=== PATIENT | female | born 1995 | race Caucasian/White ===

== ENCOUNTER 2017-08-10 10:53 | Emergency (ER) | payer OTHER ==
[~2017-08-10 10:53] MED LIST: MELO-207 PO; NYST100016 PO
--- NOTE | 2017-08-10 11:08 | ER Report ---
History and Physical Time Seen By MD: 10:58 Hx. of Stated Complaint: SLammed finger in door. Left 3rd digit HPI/ROS CHIEF COMPLAINT: Left 3rd finger injury HISTORY OF PRESENT ILLNESS: Patient is a 22-year-old female who presents the ED with complaint of a left 3rd finger injury that occurred about 10 minutes ago. 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 She is having pain and noticed a laceration of her left 3rd finger. She states it has been bleeding. Patient is able to move the finger with some pain. REVIEW OF SYSTEMS: Constitutional: No fever, no chills. Cardiovascular: No chest pain, no palpitations. Respiratory: No cough, no shortness of breath. Musculoskeletal: See history of present illness. Skin: See history of present illness. Neurological: No headache. Allergies: Coded Allergies: amoxicillin (Verified Allergy, Intermediate, HIVES, 08/10/17) Home Meds Discontinued Scripts Meloxicam (MELOXICAM) 15 Mg Tablet, 15 MG PO QDAY Y for pain, #30 TAB 1 Refill Prov:DINORAH ARAUZ MD 05/11/17 Reviewed Nurses Notes: Yes Old Medical Records Reviewed: Yes Smoking Status: Never Smoker Hx Substance Use Disorder: No Hx Alcohol Use: Yes (occ) Constitutional Vital Sign - Last 24 Hours 08/10/17 08/10/17 08/10/17 08/10/17 10:57 11:00 11:15 11:30 Temp 98.0 Pulse 66 78 67 Resp 18 B/P (MAP) 130/88 124/84 (97) 121/91 (101) Pulse Ox 97 98 98 O2 Delivery Room Air Physical Exam General Appearance: The patient is alert, has no immediate need for airway protection and no current signs of toxicity. Patient appears to be no acute distress. Respiratory: Chest is non tender, lungs are clear to auscultation. Cardiac: regular rate and rhythm Musculoskeletal: Neck: Neck is supple and non tender. There is some pain with palpation of the left 3rd middle phalanx. There is slight swelling. There is a laceration along the left 3rd middle phalanx that is slightly jagged and measures about 2 cm. Radial pulses 2+ with normal capillary refill. Normal sensation. Patient has full range of motion of the left 3rd finger with some pain. Skin: See above exam. [ ] DIFFERENTIAL DIAGNOSIS: After history and physical exam differential diagnosis was considered for left 3rd finger injury including acute fracture, laceration, contusion, sprain. Medical Decision Making EKG/Imaging Imaging Left 3rd Finger Xrays: IMPRESSION: 1. No acute osteoarticular abnormality of the left third finger is seen Report Dictated By: Caitie Bob MD at 08/10/2017 11:34 AM Report E-Signed By: Caitie Bob MD at 08/10/2017 11:36 AM ED Course/Re-evaluation ED Course Will obtain left 3rd finger x-rays. 08/10/2017 12:12:22 pm - discussed x-ray results with patient. There appears to be no fracture per radiology. Plan to suture the wound and place her on Keflex. Her tetanus vaccination is up-to-date. Procedure: Laceration repair. Verbal consent was obtained from the patient. The 2 cm jagged laceration on the left 3rd finger was anesthetized in the usual fashion with a left 3rd finger digital block using 1% lidocaine. The wound was scrubbed, draped and explored to its base with a gloved finger. There were no deep structures involved. No tendon injury was identified. The wound was repaired with 3 4-0 Prolene sutures in simple interrupted fashion. The wound repair was simple. The procedure was performed by myself. Decision to Disposition Date: Aug 10, 2017 Decision to Disposition Time: 12:13 Depart Departure Latest Vital Signs Vital Signs Date Time Temp Pulse Resp B/P (MAP) Pulse Ox O2 Delivery O2 Flow Rate FiO2 08/10/17 11:30 121/91 (101) 08/10/17 11:15 67 98 08/10/17 10:57 98.0 18 Room Air Impression: Primary Impression: Laceration of left middle finger Condition: Improved Disposition: HOME OR SELF-CARE Referrals: DINORAH ARAUZ MD (PCP) [facility] New Scripts Cephalexin 500 Mg Tab (KEFLEX 500 MG TAB) 500 Mg Tablet 500 MG PO Q6H, #28 TAB Prov: LAURA MARTINEZ PA-C 08/10/17 Patient Instructions: Finger Laceration (ED) Additional Instructions: Eyes, ice, elevate. Monitor for any signs and symptoms of infection including redness, swelling, discharge, fever. Follow-up with primary care provider or orthopedics in 7-10 days for suture removal. If having any worsening or concerning symptoms may return to the emergency department. Problem Qualifiers Primary Impression: Laceration of left middle finger Encounter type: initial encounter Damage to nail status: without damage Foreign body presence: without foreign body Qualified Codes: S61.213A - Laceration without foreign body of left middle finger without damage to nail, initial encounter LAURA MARTINEZ PA-C Aug 10, 2017 11:08
[2017-08-10 11:30] VITALS: BP 121/91
--- NOTE | 2017-08-10 11:40 | RADIOLOGY IMAGING REPORT ---
[place] [facility] [place] NAME[place] Irasema Coles : 1995 MR: [id number] V: [id number] EXAM DATE: ORDERING PHYSICIAN: LAURA MARTINEZ TECHNOLOGIST: Location: [facility] - [place] Patient: Irasema Coles : 1995 Visit/Account:[id number] Date of Sevice: 08/10/2017 Exam type: FINGER LEFT 3RD DIGIT History: Pain in left third finger, slammed in car door Comparison: None. Findings: There is no evidence of acute fracture, dislocation or radiopaque soft tissue foreign body involving the left third finger. IMPRESSION: 1. No acute osteoarticular abnormality of the left third finger is seen Report Dictated By: Caitie Bob MD at 08/10/2017 11:34 AM Report E-Signed By: Caitie Bob MD at 08/10/2017 11:36 AM WSN:[id number]
[2017-08-10] MEDS ORDERED: BACITRACIN OINT 0.9 GM PKT TP ONE (12:10)
[2017-08-10] MEDS ORDERED: CEPH500T7 PO (12:14)
== END 2017-08-10 12:21 | disposition home or self-care (01) ==
LOC: ER 11:03
DX: S61.213A Laceration without foreign body of left middle finger without damage to nail, initial encounter (principal)
CPT/HCPCS: 99283

== ENCOUNTER → 2017-10-03 | Outpatient (CLI) | payer OTHER ==
[~2017-10-03] MED LIST changes: +CEPH500T7 PO; +FLUC200T56 PO; +Magic Mouthwash PO
== END ==
LOC: LAB 15:43
PROVIDERS: ATTEND Internal Medicine
DX: K12.1 Other forms of stomatitis (principal)
CPT/HCPCS: 87252; 87253

== ENCOUNTER → 2018-01-12 | Outpatient (CLI) | payer OTHER | LOC: LAB 14:38 | PROVIDERS: ATTEND Nurse Practitioner Primary Care | DX: J02.9 Acute pharyngitis, unspecified (principal) | CPT/HCPCS: 87081 ==